=== PATIENT | male | born 1960 | race Caucasian/White ===

== ENCOUNTER 2023-07-18 07:05 | Observation (INO) ==
--- NOTE | 2023-06-07 11:30 | PAT Medication Instructions ---
Medication Instructions Date of Service June 07, 2023 Home Medications Medication Instructions Recorded tamsulosin 0.4 mg capsule 0.4 mg PO HS #90 caps 12/28/22 amoxicillin 875 mg-potassium 1 tab PO BID #20 tabs 05/30/23 clavulanate 125 mg tablet prednisone 10 mg tablet See Rx Instructions .Route 05/30/23 .COMPLEX #30 tabs CPAP Machine #1 ea 06/06/23 multivitamin (Daily Multi-Vitamin tablet) 1 tab PO QAM fluticasone propionate 50 mcg/actuation nasal spray,suspension (Flonase Allergy Relief) 2 spray intranasal QAM cholecalciferol (vitamin D3) 50 mcg (2,000 unit) capsule (Vitamin D3) 50 mcg PO QAM tamsulosin 0.4 mg capsule 0.4 mg PO HS clobetasol 0.05 % topical ointment 1 applic topical DAILY PRN Skin Irritation amoxicillin 875 mg-potassium clavulanate 125 mg tablet 1 tab PO BID prednisone 10 mg tablet See Rx Instructions amlodipine 5 mg tablet 5 mg PO QAM cetirizine 10 mg tablet (24Hour Allergy) 10 mg PO QAM [place]'s disease diphenhydramine HCl 25 mg tablet (Benadryl Allergy) 25 mg PO HS PRN coral's disease irbesartan 75 mg tablet 75 mg PO QAM Continue as directed amoxicillin 875 mg-potassium clavulanate 125 mg tablet 1 tab PO BID prednisone 10 mg tablet See Rx Instructions STOP taking 24 hours before surgery clobetasol 0.05 % topical ointment 1 applic topical DAILY PRN Skin Irritation DO NOT take the morning of surgery multivitamin (Daily Multi-Vitamin tablet) 1 tab PO QAM cholecalciferol (vitamin D3) 50 mcg (2,000 unit) capsule (Vitamin D3) 50 mcg PO QAM cetirizine 10 mg tablet (24Hour Allergy) 10 mg PO QAM [place]'s disease irbesartan 75 mg tablet 75 mg PO QAM Take morning of surgery With a small sip of water, OTHERWISE NOTHING TO EAT OR DRINK AFTER MIDNIGHT: fluticasone propionate 50 mcg/actuation nasal spray,suspension (Flonase Allergy Relief) 2 spray intranasal QAM amlodipine 5 mg tablet 5 mg PO QAM Take evening before surgery tamsulosin 0.4 mg capsule 0.4 mg PO HS diphenhydramine HCl 25 mg tablet (Benadryl Allergy) 25 mg PO HS PRN coral's disease (if needed) Other Notes If you have any questions please call us at [phone] or [phone] or [phone] or [phone]
--- NOTE | 2023-06-12 12:09 | Anesthesiology Consultation ---
Date of Service June 12, 2023 Assessment & Plan (1) Encounter for pre-operative examination: - Outpatient joint assessment: Patient is currently scheduled for inpatient pathway. If re-evaluated and surgeon requests outpatient pathway, patient is not recommended candidate for outpatient joint program from anesthesia standpoint as he expresses is not comfortable going home same day at this time given age. Chart Review Chart Review: Acceptable Risk for Surgery and Patient seen in Pre Admission Testing Teaching & Discussion Pre-Anesthesia Teaching/Discussion Notes: Instructed NPO after midnight before surgery, except medications with 15 cc of water. Medication instructions provided according to the PAT guidelines. History Surgery Operation Date: 07/18/23 12:50 Proposed Procedures p Left Total Knee Arthroplasty - Riley Maki MD Height/Weight Height: 5 ft 9 in Weight: 97.3 kg Allergies Allergy/AdvReac Type Severity Reaction Status Date / Time No Known Drug Allergies Allergy Verified 06/13/23 13:53 Medications Home Medications Medication Instructions Recorded Confirmed Last Taken multivitamin (Daily Multi-Vitamin 1 tab PO QAM 05/28/21 06/13/23 10/11/22 tablet) fluticasone propionate 50 2 spray intranasal QAM 07/07/21 06/13/23 10/12/22 mcg/actuation nasal spray,suspension (Flonase Allergy Relief) cholecalciferol (vitamin D3) 50 50 mcg PO QAM 10/06/22 06/13/23 10/11/22 mcg (2,000 unit) capsule (Vitamin D3) tamsulosin 0.4 mg capsule 0.4 mg PO HS #90 caps 12/28/22 06/13/23 Unknown prednisone 10 mg tablet See Rx Instructions .Route 05/30/23 06/13/23 Unknown .COMPLEX #30 tabs amlodipine 5 mg tablet 5 mg PO QAM 06/05/23 06/13/23 Unknown cetirizine 10 mg tablet (24Hour 10 mg PO QAM Coral's disease 06/05/23 06/13/23 Unknown Allergy) diphenhydramine HCl 25 mg tablet 25 mg PO HS PRN coral's disease 06/05/23 06/13/23 Unknown (Benadryl Allergy) irbesartan 75 mg tablet 75 mg PO QAM 06/05/23 06/13/23 Unknown CPAP Machine #1 ea 06/06/23 06/13/23 Unknown clobetasol 0.05 % topical ointment 1 applic topical BID #45 grams 06/13/23 06/13/23 Unknown Past Medical History Medical History (Updated 06/12/23 @ 12:12 by Becky Maciel PA-C) History of colon polyps [place]'s disease follows with [facility] Allergy Venous insufficiency HTN (hypertension) controlled, stable per pt NIESHA (obstructive sleep apnea) current machine does not work properly. has f/u with Dr Toscano 06/06/23. Allergic rhinitis BPH (benign prostatic hyperplasia) Patient denies h/o stroke, seizures, heart attack, heart failure, DM, blood clots/DVTs or blood transfusions. Exercise / Class Metabolic Activity II 4-5 Yardwork/Stairs/Walk up hill (denies chest discomfort or shortness of breath with 1 FOS) Past Family History Family History Mother Afib Dementia Father Prostate cancer Mini stroke Hypertension Other No family history of adverse response to anesthesia Denies family history of Ovarian cancer Myocardial infarction Breast cancer Colorectal cancer Past Surgical History Surgical History History of cataract surgery bilateral Status post laser ablation of incompetent vein left leg H/O colonoscopy 09/2022, repeat in 5 years History of meniscectomy of left knee Past Anesthesia History No Family Hx of Anesthesia Complications and Other (mild headache after colonoscopy) History of PONV No Hx of PONV and No Hx of Motion Sickness Social History Smoking Status: Never smoker Do You Dip or Chew Tobacco: No Hx Alcohol Use: Yes Alcohol type: beer, wine and hard liquor alcohol intake frequency: a few times a week Hx Substance Use: No substance use type: does not use Review of Systems Patient denies chest pain, shortness of breath, dyspnea on exertion, reflux, fever, chills, cough, wheezing, or palpitations. Physical Exam Vital Signs Vitals BP 103/69 P 81 TEMP 98.2 SP02 95% on RA RESP 17 Physical Patient resting comfortably in chair in no acute distress, alert and oriented, responding appropriately throughout visit Full cervical extension range of motion without pain TMD 3.5 finger breadths Mallampati Score 2 Dentition: intact, denies chipped or loose teeth, caps/crowns, implants or bridges Lungs: normal respiratory effort. Good air movement, clear throughout to auscultation, no adventitious breath sounds Cardiac: regular rate and rhythm, no murmurs noted Carotid arteries: negative bruit bilat Lab Results Anesthesia Preop Results Results Anesthesia Widget: WBC 10.28 K/ul (4.8-10.8) 06/12/23 Hgb 17.0 g/dl (14.0-18.0) 06/12/23 Hct 50.5 % (42.0-52.0) 06/12/23 Plt 257 K/uL (130-400) 06/12/23 Na 139 mmol/L (136-145) 06/12/23 K 4.5 mmol/L (3.5-5.1) 06/12/23 Cl 104 mmol/L (98-107) 06/12/23 CO2 30 mmol/L (21-32) 06/12/23 BUN 13 mg/dl (6-23) 06/12/23 Creat 0.93 mg/dl (0.6-1.4) 06/12/23 Glucose Level 98 mg/dl (70-99(Fasting)) 06/12/23 PT 10.8 Seconds (9.0-12.0) 06/12/23 PTT 30 Seconds (21-31) 06/12/23 INR 1.0 (0.9-1.1) 06/12/23 Blood Type O Positive 06/12/23 Antibody Screen NEGATIVE 06/12/23 Testing Electrocardiogram Date: 06/12/23 NSR, rate 73 bpm Possible inferior infarct, age undetermined Tracing is similar to previous EKGs scanned in chart from 2020 and 2019 Chest X-Ray Date: 06/12/23 No acute cardiopulmonary findings.
--- NOTE | 2023-07-16 11:24 | History & Physical Report ---
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 Has failed all conservative measures including PRP injection. He is ready to have his knee fixed. Plan: We will take him to the operating room do a left total knee replacement. The risks Mente this procedure explained the patient clued but not limited to DVT PE infection neurological and vascular bleeding palm pain limb range of motion sepsis fairly with symptoms incomplete relief of symptoms need for further surgery in future excetra. The patient understands and desires to proceed. Informed consent was obtained. He is got a plan on stay in the hospital overnight with hopeful discharge postop day 1. Will likely use of vancomycin in the cement due to his history of open surgery in the past. Will plan on DVT prophylaxis including thigh-high teds, SCDs, aspirin twice a day. (2) History of meniscectomy of left knee: History of Present Illness Chief Complaint: . Persistent left knee pain and discomfort. Primary Care Provider: Brennan Chacon DO . Patient is a 63-year-old gentleman from [place] who presents for surgical treatment his left knee. He has a long history of knee problems had an open meniscectomy back in 1976. Over the past several years she developed increased pain discomfort intermittent swelling in his knee. He has been through extensive conservative treatment including steroid shots and gel and shins as well as a stem cell injection. These have not helped very much. 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 Pain is global. Increased with activities. He does have some instability as well. He is ready to have his knee fixed. Allergies Allergy/AdvReac Type Severity Reaction Status Date / Time No Known Drug Allergies Allergy Verified 06/13/23 13:53 Home Medications Medication Instructions Recorded Confirmed Type multivitamin (Daily Multi-Vitamin 1 tab PO QAM 05/28/21 06/13/23 History tablet) fluticasone propionate 50 2 spray intranasal QAM 07/07/21 06/13/23 History mcg/actuation nasal spray,suspension (Flonase Allergy Relief) cholecalciferol (vitamin D3) 50 50 mcg PO QAM 10/06/22 06/13/23 History mcg (2,000 unit) capsule (Vitamin D3) tamsulosin 0.4 mg capsule 0.4 mg PO HS #90 caps 12/28/22 06/13/23 Rx prednisone 10 mg tablet See Rx Instructions .Route 05/30/23 06/13/23 Rx .COMPLEX #30 tabs amlodipine 5 mg tablet 5 mg PO QAM 06/05/23 06/13/23 History cetirizine 10 mg tablet (24Hour 10 mg PO QAM Coral's disease 06/05/23 06/13/23 History Allergy) diphenhydramine HCl 25 mg tablet 25 mg PO HS PRN coral's disease 06/05/23 06/13/23 History (Benadryl Allergy) irbesartan 75 mg tablet 75 mg PO QAM 06/05/23 06/13/23 History CPAP Machine #1 ea 06/06/23 06/13/23 Rx clobetasol 0.05 % topical ointment 1 applic topical BID #45 grams 06/13/23 06/13/23 Rx acetaminophen 500 mg tablet 1,000 mg (2 x 500 mg) PO TID pain 07/16/23 Rx (Tylenol Extra Strength) 30 days #180 tabs aspirin 81 mg tablet,delayed 81 mg PO BID 45 days #90 tabs 07/16/23 Rx release (Sanjay Low Dose Aspirin) cefadroxil 500 mg capsule 500 mg PO BID 7 days #14 caps 07/16/23 Rx ketorolac 10 mg tablet 10 mg PO Q6 pain 5 days #20 tabs 07/16/23 Rx ondansetron 4 mg disintegrating 4 mg PO Q8 PRN nausea #20 tabs 07/16/23 Rx tablet oxycodone 5 mg tablet 5 - 10 mg (1 - 2 x 5 mg) PO Q6 PRN 07/16/23 Rx pain #40 tabs sennosides 8.6 mg tablet (Senokot) 8.6 mg PO BID prevent constipation 07/16/23 Rx 14 days #28 tabs Past Med/Surg History Medical History History of colon polyps [place]'s disease follows with [facility] Allergy Venous insufficiency HTN (hypertension) controlled, stable per pt NIESHA (obstructive sleep apnea) current machine does not work properly. has f/u with Dr Toscano 06/06/23. Allergic rhinitis BPH (benign prostatic hyperplasia) Surgical History History of cataract surgery bilateral Status post laser ablation of incompetent vein left leg H/O colonoscopy 09/2022, repeat in 5 years History of meniscectomy of left knee Family History Mother Afib Dementia Father Prostate cancer Mini stroke Hypertension Other No family history of adverse response to anesthesia Denies family history of Ovarian cancer Myocardial infarction Breast cancer Colorectal cancer Social History Smoking Status: Never smoker Second Hand Exposure: No; Do You Dip or Chew Tobacco: No; Tobacco Cessation Education Requested by Patient: No Hx Alcohol Use: Yes Alcohol type: beer, wine and hard liquor Alcohol Intake Frequency: 2-4 x/Month Alcohol Intake Frequency Comment: 3-4 DRINKS WEEKLY Hx Substance Use: No Preferred Language: Ivorian Communication Ability: Effective Visual Impairment: Limited Hearing Ability: Normal 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 Physical Exam . Physical examination reveals a pleasant middle-age male. Looks in good health. Examination left knee reveals patient walks with a slight bit of a limp he is got varus alignment to his knee. Well-healed oblique lateral incision over the lateral joint line. Small knee effusion. Range of motion about 5 to 10 degrees show full extension to 105 degrees of flexion. Knee is pretty stiff in flexion. No pain with hip motion. He is neurologically intact. Constitutional WD/WN, vitals as above Respiratory normal respiratory effort, lungs clear to auscultation Cardiovascular RRR, no murmur, no edema Gastrointestinal (Abdomen) normal bowel sounds, soft, nontender, no hepatosplenomegaly Results & Data Results & Data Laboratory Results . Diagnostic Findings . X-rays left knee were reviewed. Shows advanced knee lateral compartment arthritis. Got complete loss of his lateral joint space. Got subchondral sclerosis and osteophytes laterally. PG Care Time/CCT Total # of Minutes Spent Total Time Spent with Patient: Total time spent is greater than 50% in coordination of care (as documented) at patient's floor/unit and/or counseling patient: Coding Level of Care Code None Diagnoses Left knee DJD M17.12 History of meniscectomy of left knee Z98.890
[~2023-07-18 07:05] MED LIST: ACETAMINOPHEN 500 MG TAB PO SCH; BUPIVACAINE 0.5 % 5 MG/1 ML PF 10ML VIAL ONE; CeleBREX 200 MG CAP PO SCH; FAMOTIDINE 20 MG TAB PO SCH; LR 500ML BOLUS, THEN 15ML/HR IV SCH; LR 60ML/HR IV SCH; METOCLOPRAMIDE HCL 10 MG TABLET PO SCH; ROPIV 0.5% 246mg, Ketorolac 30mg, EPINEPHrine 0.5mg in NSS INFIL SCH; ROPIVACAINE 0.5% 5 MG/ML 30 ML VIAL ONE; Scopolamine 1 MG TDSY TD SCH; TRANEXAMIC ACID 1,000 MG **IV Intra-op IV SCH; ceFAZolin 2000MG 2,000 MG/15 ML SYR IV SCH; dexAMETHasone**PF** 10 MG/ML VIAL IV SCH
[2023-07-18] MEDS ORDERED: MIDAZOLAM HCL 1 MG/ML 2ML VIAL ONE (08:04)
[2023-07-18] MEDS ORDERED: PROPOFOL IV EMULSION 10 MG/ML 20 ML VIAL IV ONE ×2 (08:08→13:35)
[2023-07-18] MEDS ORDERED: ONDANSETRON INJ 2 MG/ML 2 ML VIAL IV PRN ×2 (08:22→12:05)
[2023-07-18] MEDS ORDERED: fentaNYL citrate PF 100 MCG/2 ML VIAL IV PRN (08:22)
[2023-07-18] MEDS ORDERED: ATROPINE SULFATE 0.1 MG/ML 10ML SYR IV PRN (08:22)
[2023-07-18] MEDS ORDERED: ePHEDrine sulfate 50 MG/ML AMP IV PRN (08:22)
[2023-07-18] MEDS ORDERED: fentaNYL citrate PF 100 MCG/2 ML VIAL ONE (08:30)
[2023-07-18] MEDS ORDERED: LIDOCAINE 2% 2 ML VIAL/AMP(20MG/ML) INFIL ONE (08:30)
[2023-07-18] MEDS ORDERED: ORTHO JOINT ANESTHETIC ONE (08:45)
--- NOTE | 2023-07-18 08:54 | History & Physical Bridge Note ---
Date of Service July 18, 2023 History & Physical Bridge Note I have examined the patient, reviewed the History & Physical and in the interval since the performance of the History & Physical I have noted the following changes of clinical significance: no changes noted
[2023-07-18] MEDS ORDERED: VANCOMYCIN HCL 1000MG/20ML VIAL ONE (09:11)
[2023-07-18] MEDS ORDERED: KETOROLAC 30 MG/ML VIAL ONE (10:21)
--- NOTE | 2023-07-18 10:58 | Operative Report ---
PG Post Operative Report Pre & Post Diagnosis Operation Date: 07/18/23 08:50 Pre-Op Diagnosis: Left Knee Advanced Degnerative Joint Disease Post-Op Diagnosis: Left Knee Advanced Degnerative Joint Disease I identified the patient and participated in the time-out.: Yes Procedure Operation Date: 07/18/23 08:50 Actual Procedures p Left Total Knee Arthroplasty(Left) - Riley Maki MD Surgeon Riley Maki MD Wellness Assistant Rahul Olmos PA-C Estimated Blood Loss 50 Findings Consistent with Post-Op Diagnosis Operative findings reveal advanced left knee DJD. Extensive grade 4 [id number] disease of the entire lateral compartment. He is a valgus deformity to his knee. Her large knee joint effusion. Specimens Left knee sent for pathology. Anesthesia Type Spinal MAC Complications none Disposition Accompanied Patient To Recovery: No Indications Patient is a 63-year-old fairly active gentleman who had a long history of left knee pain discomfort is gradually gotten worse over time. He has history of an open meniscectomy many years ago. He failed conservative measures. X-rays showed advanced lateral compartment DJD. He elected proceed with surgical management. He did have a fairly stiff knee preoperatively as well. Description of Procedure Operative implants consist of: 1. Biomet Vanguard size 67.5 left Po stabilized femoral component. 2. Biomet size 75 tibial tray. 3. 10 mm post stabilized polyethylene insert. 4. 31 x 8 all poly patella. The patient was taken to the operating, identified, and placed on the operating table in the supine position. All contractors were appropriately padded. IV antibiotics tried by anesthesia team. A spinal anesthetic and abductor canal block by the holding area. A left thigh turn was then placed. Left lower extremities then prepped and draped in usual sterile fashion. The left leg was elevated exsanguinated with use of an Esmarch and tourniquet placed at 3 mmHg. An anterior approach the left knee was then performed to longitudinal incision centered over the patella. Sharp dissection was carried through subcutaneous tissue down the extensor mechanism. A medial parapatellar arthrotomy incision was made. Some subperiosteal dissection was carried out. The fat pad was resected from Neath patella tendon. Lateral patellofemoral ligament was released. Patella subluxated laterally. The knee was flexed. The osteophytes taken off distal femur. The ACL and PCL were then released from the distal femur the tibia subluxated anteriorly. The external tibial alignment jig was then placed the interface the tibia and adjusted 12 mm medially. Proximal tibial cut was made to remove about 2 to 3 mm of bone from the medial side. The tibia sized to a size 75. Attention drawn the femur. The distal femur examined the sharp drop with intramedullary canal was suction. A left 5 degree valgus cutting guide was placed. Distal femoral cutting block was pinned in place. Distal femoral cut was made to take an additional 3 mm of bone off distal femur. The femur was then sized to a size 67.5. The AP cutting block was pinned parallel to the epicondylar axis which was 5 degrees of exte rnal rotation. The anterior cut, anterior chamfer, posterior cut, posterior chamfer cuts were made. The box cutting guide was placed and adjusted slight laterally. The box cut was made. The knee was flexed. The remnants of the medial and lateral menisci were excised with the osteophytes taken off the posterior aspect the femur. A trial femoral component was placed through the tibial tray was pinned Kay external rotation and the drill and stem punch used to create defect in proximal tibia for the tibial tray. The knee was then trialed and the 10 mm insert fit most appropriately. Attention drawn the patella. The patella was cleaned of all soft tissue. Patella thickness measured 23 mm in thickness was cut down to 14. Was sized to a size 31 patella. The locals were drilled for 31 patella. The lateral osteophytes removed. Patella button was placed. Knee was taken through range of motion patella tracked nicely with no thumbs test. Attention drawn to placing the permanent components. All trial components were removed. Double batch [place] G cement was mixed. Biomet Vanguard size 67.5 left Po stabilized femoral component, size 75 tibial tray, a 10 mm pro stabilized polyethylene insert, and a 31 x 8 all poly patella then cemented in place. The knee was brought out into full extension till cement hardened. Final cement check was then performed. Pericapsular tissues were injected total 100 cc of combination of 20 of Exparel, 30 cc normal saline, 50 cc of quarter percent Marcaine with epinephrine. Patient did receive 1 g tranexamic acid. The tourniquet was let down for final tourniquet time 55 minutes. Hemostasis assured use electrocautery. Extensor Meclomen closed with combination 1 PDS suture #1 Vicryl suture in [id number] fashion. Extensor Meclomen checked found to be intact and subcutaneous tissue then closed with 2 Dexon suture in a buried interrupted fashion skin was closed skin jeannette. Leg was then cleaned and dried and sterile dressing was Xeroform, 4 fours, sterile cast padding, Juvencio bandage were applied. Patient then transferred to the recovery room in stable condition. Patient tolerated the procedure well and there were no complications. Rahul Olmos, my physician training and development assistant, was present for the entire procedure. His assistance was essential and required for appropriate patient positioning, prepping and draping, surgical exposure, performing the technical details of the operation, placement the implants, closure of the wound, and placement of the sterile bandage. I attest to the content of the Intraoperative Record and any orders documented therein. Any exceptions are noted below.
--- NOTE | 2023-07-18 11:42 | XRay Report ---
XR knee LT 1 or 2V routine CLINICAL HISTORY: Postoperative evaluation. COMPARISON: Left knee radiographs June 12, 2023. FINDINGS: Alignment of the total left knee arthroplasty is anatomic. There is no periprosthetic frac ture or unexpected radiopaque foreign body. There are skin jeannette. IMPRESSION: Expected findings following total left knee arthroplasty. ACT 112: Negative or not required by law. Electronically signed by: Skip Charles M.D. 07/18/2023 11:40 AM
[2023-07-18] MEDS ORDERED: ALUMINUM/MAGNESIUM SUSP 30 ML UDC PO PRN (12:05)
[2023-07-18] MEDS ORDERED: diphenhydrAMINE Capsule 25 MG CAP PO PRN (12:05)
[2023-07-18] MEDS ORDERED: HYDROmorphone INJ 0.5 MG/0.5 ML SYR IV PRN (12:05)
[2023-07-18] MEDS ORDERED: bisacodyL 10 MG SUPP PR PRN (12:05)
[2023-07-18] MEDS ORDERED: METOCLOPRAMIDE HCL INJ 5 MG/ML 2 ML VIAL IV PRN (12:05)
[2023-07-18] MEDS ORDERED: NALOXONE HCL 0.4 MG/1 ML VIAL/CARP IV PRN (12:05)
[2023-07-18] MEDS ORDERED: NON-FORMULARY MEDICATION (Diphenhydramine Hcl [Benadryl Allergy] 25 mg Tablet) PO PRN (12:05)
[2023-07-18] MEDS ORDERED: MAGNESIUM HYDROXIDE SUSP 30 ML UDC PO PRN (12:05)
--- NOTE | 2023-07-18 12:13 | Anesthesiology Progress Note ---
Date of Service July 18, 2023 Anesthesia Post Procedure Vital Signs Vital Signs: Temp Pulse Pulse Resp BP Pulse Ox O2 Del Method 07/18/23 11:40 97.5 F L 72 18 116/72 95 Room Air 07/18/23 11:30 97.3 F L 64 18 109/74 92 Room Air 07/18/23 11:20 97.3 F L 74 19 116/71 96 Room Air 07/18/23 11:10 97.3 F L 80 15 117/71 96 Room Air 07/18/23 11:00 78 19 111/72 94 Oxymask 07/18/23 11:00 97.3 F L 78 19 111/72 94 Room Air 07/18/23 10:50 78 13 114/82 93 Oxymask 07/18/23 10:44 97.3 F L 82 12 112/69 94 Oxymask 07/18/23 07:44 Room Air, CPAP 07/18/23 07:44 98.4 F 77 18 150/86 H 96 Room Air, CPAP O2 Flow Rate 07/18/23 11:40 07/18/23 11:30 07/18/23 11:20 07/18/23 11:10 07/18/23 11:00 3 07/18/23 11:00 07/18/23 10:50 5 07/18/23 10:44 5 07/18/23 07:44 07/18/23 07:44 Pain Intensity Left Knee: Pain Intensity: 0 Transfer of Care Handoff Completed per policy Notes Mental Status: alert / awake / arousable and participated in evaluation Patient Amnestic to Procedure: Yes Nausea / Vomiting: adequately controlled Pain: adequately controlled Airway Patency, RR, SpO2: stable & adequate BP & HR: stable & adequate Hydration State: stable & adequate Neuraxial Anesthesia: was administered and sensory block is resolving Anesthetic Complications: no major complications apparent and Pt Satisfied with anesthetic care
[2023-07-18] MEDS: SODIUM CHLORIDE 0.9% 1,000 ML IV SCH ×2 (12:19→22:31)
[2023-07-18] MEDS: KETOROLAC 30 MG/ML VIAL IV SCH ×2 (13:31→18:03)
[2023-07-18] MEDS: predniSONE 10 MG TABLET PO SCH (13:48)
[2023-07-18] MEDS: ASCORBIC ACID 500 MG TAB PO SCH (16:43)
[2023-07-18] MEDS: Scopolamine CHECK PATCH PLACEMENT SCH (16:43)
[2023-07-18] MEDS: ACETAMINOPHEN 500 MG TAB PO SCH (16:44)
[2023-07-18] MEDS: ceFAZolin 2000MG 2,000 MG/15 ML SYR IV SCH (16:45)
[2023-07-18] MEDS ORDERED: TRANEXAMIC ACID / 0.7% NACL 1,000 MG/100 ML BAG IV SCH (17:00)
[2023-07-18] MEDS: ASPIRIN 81 MG ECTAB PO SCH (19:59)
[2023-07-18] MEDS: DOCUSATE SODIUM 100 MG CAP PO SCH (20:00)
[2023-07-18] MEDS: CLOBETASOL PROPIONATE 0.05% OINT 15 GM TUBE EXT SCH (20:00)
[2023-07-18] MEDS ORDERED: SENNA 8.6 MG TAB PO SCH ×2 (21:00)
[2023-07-18] MEDS ORDERED: TAMSULOSIN HCL 0.4 MG CAP PO SCH (21:00)
[2023-07-19] MEDS: ACETAMINOPHEN 500 MG TAB PO SCH ×2 (00:03→08:01)
[2023-07-19] MEDS: KETOROLAC 30 MG/ML VIAL IV SCH ×2 (00:03→06:00)
[2023-07-19] MEDS: ceFAZolin 2000MG 2,000 MG/15 ML SYR IV SCH (00:06)
[2023-07-19] MEDS: Scopolamine CHECK PATCH PLACEMENT SCH ×2 (00:06→08:07)
[2023-07-19] MEDS: oxyCODONE HCL IR 5 MG TAB (IMMEDIATE RELEASE) PO PRN ×2 (01:50→08:04)
[2023-07-19 06:47] LABS: Hematocrit (blood only) 39.2 % (42.0-52.0); Hemoglobin 13.3 g/dl (14.0-18.0); Mean Corpuscular Hgb Conc 33.9 g/dL (32.0-36.0); Mean Corpuscular Volume 85.4 fL (80.0-100.0); Mean Platelet Volume 10.2 fL (9.4-12.4); Platelet Count 218 K/uL (130-400); RDW Standard Deviation 40.4 fL (36.4-46.3); Red Blood Count 4.59 M/uL (4.70-6.10); White Blood Count 24.03 K/ul (4.8-10.8)
[2023-07-19 07:34] LABS: Calcium 8.6 mg/dl (8.6-10.3); Potassium 4.2 mmol/L (3.5-5.1)
[2023-07-19 07:40] LABS: BUN Creatinine Ratio 21.6 (10-20); Creatinine Clr Calc Pharmacy 98.8 ml/min; Est GFR (African American) 105.2 ml/min; Est GFR (Non-African American) 90.8 ml/min
[2023-07-19] MEDS ORDERED: dexAMETHasone 10 MG in SYRINGE 0 ML IV SCH (08:00)
[2023-07-19] MEDS: ASPIRIN 81 MG ECTAB PO SCH (08:02)
[2023-07-19] MEDS: ASCORBIC ACID 500 MG TAB PO SCH (08:07)
[2023-07-19] MEDS: DOCUSATE SODIUM 100 MG CAP PO SCH (08:08)
[2023-07-19] MEDS: predniSONE 10 MG TABLET PO SCH (08:09)
[2023-07-19] MEDS: CLOBETASOL PROPIONATE 0.05% OINT 15 GM TUBE EXT SCH (08:09)
[2023-07-19] MEDS ORDERED: MULTIVITAMIN TAB PO SCH (09:00)
[2023-07-19] MEDS ORDERED: LOSARTAN POTASSIUM 25 MG TAB PO SCH (09:00)
[2023-07-19] MEDS ORDERED: OMEGA-3 (PURIFIED FISH OIL) 1 GM CAP PO SCH (09:00)
[2023-07-19] MEDS ORDERED: CETIRIZINE HCL 10 MG TABLET PO SCH (09:00)
[2023-07-19] MEDS ORDERED: NON-FORMULARY MEDICATION (Multivitamin [Daily Multi-Vitamin] tablet) PO SCH (09:00)
[2023-07-19] MEDS ORDERED: FLUTICASONE PROPIONATE NA SPR 16 GM BTL NAE SCH (09:00)
[2023-07-19] MEDS ORDERED: CHOLECALCIFEROL 1,000 UNITS 25 MCG TAB PO SCH (09:00)
[2023-07-19] MEDS ORDERED: amLODIPine BESYLATE 5 MG TAB PO SCH (09:00)
--- NOTE | 2023-07-19 10:43 | Orthopedic Progress Note ---
Date of Service July 19, 2023 Assessment & Plan (1) Status post left knee replacement: Overall he is doing quite well today with good pain control to the left knee. He will work with physical therapy later this morning to work on ambulation and range of motion exercises. He is on aspirin for DVT prophylaxis. He may be discharged home later this morning pending physical therapy evaluation. He will follow-up with Dr. Maki in 2 weeks for postoperative care. Subjective . Jesu was seen and evaluated at bedside this morning resting comfortably in no apparent distress. He notes that his pain is well-controlled to the left knee. He has been up and out of bed with no significant issues. He has yet to work with physical therapy this morning. He denies any other concerns today. Review of Systems All systems reviewed & are unremarkable except as noted in HPI & below. Physical Exam . On physical examination of the left knee, dressings are clean, dry, intact. His leg is out in full extension. He has active plantarflexion dorsiflexion to the left ankle. +2 DP and PT pulses. Less than 2-second capillary refill. Normal sensation. Neurovascular intact. Results & Data Results & Data Laboratory Results . Diagnostic Findings . Postoperative x-rays of the left knee show prosthesis to be in anatomical alignment with no signs of fracture complication or loosening. PG Care Time/CCT Total # of Minutes Spent Total Time Spent with Patient: Total time spent is greater than 50% in coordination of care (as documented) at patient's floor/unit and/or counseling patient: Coding Level of Care Code 62102 Post Operative Follow-Up Diagnoses Status post left knee replacement Z96.652
--- NOTE | 2023-07-19 10:45 | Discharge Summary ---
Date of Service July 19, 2023 Admission HPI (Per Admitting) . Patient is a 63-year-old gentleman from [place] who presents for surgical treatment his left knee. He has a long history of knee problems had an open meniscectomy back in 1976. Over the past several years she developed increased pain discomfort intermittent swelling in his knee. He has been through extensive conservative treatment including steroid shots and gel and shins as well as a stem cell injection. These have not helped very much. 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 Pain is global. Increased with activities. He does have some instability as well. He is ready to have his knee fixed. Admission Exam (Per Admitting) . Physical examination reveals a pleasant middle-age male. Looks in good health. Examination left knee reveals patient walks with a slight bit of a limp he is got varus alignment to his knee. Well-healed oblique lateral incision over the lateral joint line. Small knee effusion. Range of motion about 5 to 10 degrees show full extension to 105 degrees of flexion. Knee is pretty stiff in flexion. No pain with hip motion. He is neurologically intact. Principal Diagnosis Same as "Discharge Diagnosis" noted below under Discharge Instructions. Discharge Exam . On physical examination of the left knee, dressings are clean, dry, intact. His leg is out in full extension. He has active plantarflexion dorsiflexion to the left ankle. +2 DP and PT pulses. Less than 2-second capillary refill. Nor mal sensation. Neurovascular intact. Discharge Data Procedures Performed Operation Date: 07/18/23 08:50 Actual Procedures p Left Total Knee Arthroplasty(Left) - Riley Maki MD Ordered Studies 07/18/23 05:00 US - OR guided needle placemen Routine Hospital Course (1) Status post left knee replacement: On July 18, 2023 Jesu arrived at [facility] and underwent a left total knee arthroplasty performed by Dr. Maki with no complications. He had a spinal anesthetic. Postoperatively, he was started on aspirin for DVT prophylaxis and transferred to the general orthopedic floor in stable condition. His hospital course was uneventful. On postoperative day #1, his vital signs were stable and his pain was well-controlled. He participated well with physical therapy doing ambulation and range of motion exercises. He was then discharged home in stable condition. He will follow-up with Dr. Maki in 2 weeks for postoperative care. PG Care Time/CCT Total # of Minutes Spent Total Time Spent with Patient: Total time spent is greater than 50% in coordination of care (as documented) at patient's floor/unit and/or counseling patient: Discharge Plan Discharge Items Patient Disposition: Home - Home Health Services Reason For Visit: Degenerative Joint Disease Left Knee Discharge Diagnosis: Left Knee Replacement Activity: Per Instructions section Weightbearing: Full weightbearing Non-emergency contact: Surgeon Call non-emergency contact if: you have any medication questions Follow-up/Referrals: Brennan Chacon, [Primary Care Provider] - Diet: Regular Addtl Attending Provider Instructions: ACTIVITY RECOMMENDATIONS: Physical Therapy: * You will go to physical therapy three times each week for four to six weeks after your surgery in order to regain your knee range of motion and to retrain your knee to work properly. * It is just as important to make sure you are getting your knee perfectly straight as it is to regain your knee bend. * Taking a pain pill an hour before therapy can help you have a more productive and comfortable therapy session. Home Exercise: * You were shown a series of exercises (heel props, heel slides, etc.) in the hospital. Do these exercises three to four times each day including the exercises you were shown in physical therapy. Walking: * Get up and walk several times each day. For the first four weeks, try not to stand or walk for more than one hour at a time. If you do stand or walk for more than one hour, you will not hurt anything, but your knee and leg will likely swell. * As you feel comfortable, you may change from the walker or crutches to a cane and then to independent walking. MEDICATIONS: New Medicine: * You will likely be taking one or more of these medications: 1. Oxycodone - A quick and shorter-acting pain medication. Take one to two tablets every six hours to lessen your pain. 2. Aspirin - Thins your blood to lessen the chance of forming a blood clot. * The most common side effects of pain medicine and iron are nausea and constipation. If nausea or constipation is too much of a problem or if you have any questions about your new medicines or doses, call [facility] at . We will try to help you manage these issues. "VERY IMPORTANT TO READ AND REVIEW" Pain: * The immediate post-operative period after knee replacement surgery is often quite painful. * You are given a prescription for pain medicine. You should take it, as directed, when you need it, especially before physical therapy and before going to bed. Pain that interferes with sleep is very common and can last several months. * You will likely need pain medicine for the first four to six weeks. It will not stop all of the pain. The pain will lessen and as you feel better, you may change to milder pain medicine such as Tylenol. * The most common side effects of pain medicine are nausea and constipation, so don't take more than you need. SPECIAL CARE INSTRUCTIONS: TEDs/Elastic Stockings: * The white elastic stockings help limit swelling and prevent blood clots from forming in your legs. The more you wear them, the more they work. * Wear them for six weeks after knee replacement surgery and four weeks after partial knee replacement. Incision Site Care: * Remove dressing postoperative day 2 and then shower. Keep direct shower pressure off the incision site. * After showering, cover jeannette with dry gauze and change daily or more frequently if the dressing is getting saturated with drainage. * Use the ANGELLA stockings to hold dressing in place. DO NOT apply tape on the skin. * May completely stop using bandage if wound is dry and no drainage * [place] are removed between 2 and 3 weeks post-op. If your follow-up appointment is made before 2 weeks, please have your appointment re- scheduled. It is too early to remove the jeannette. Prevention of Infection: * Take antibiotics one hour before any dental cleaning, dental work, urological procedure, gastrointestinal procedure or any invasive surgery in order to prevent your new joint from getting infected. * You may get the antibiotics from the doctor performing the procedure or you may call our office at [phone] before and we will call in a prescription to the pharmacy of your choice. Things to Watch For: * Drainage from the incision site that occurs more than one week after your surgery. * Severely increased knee/leg pain or swelling. * Increased redness at the incision site. * Fever above 102 degrees Fahrenheit. * Unusual chest pain or shortness of breath. * Unusual pain or burning with urination. Call [facility] at [phone] with any of the above problems or if you have any questions about your medicines or recovery. FOLLOW UP VISIT: Make an appointment to see your doctor for approximately two weeks after surgery for a progress check and staple removal by calling the office at [phone]. Pending Studies at Discharge: No Stand-Alone Forms: [facility] [place], Smoking Cessation Medications and DC Order Prescriptions: Continued tamsulosin 0.4 mg capsule 0.4 mg PO HS Qty: 90 3RF oxycodone 5 mg tablet 5 - 10 mg PO Q6 PRN (Reason: pain) Qty: 40 0RF Rx Instructions: Take as needed for pain ondansetron 4 mg tablet,disintegrating 4 mg PO Q8 PRN (Reason: nausea) Qty: 20 1RF Rx Instructions: Take as needed for nausea ketorolac 10 mg tablet 10 mg PO Q6 5 Days Qty: 20 0RF Rx Instructions: Take 4 times per day with food for 5 days to lessen pain and swelling. sennosides [Senokot] 8.6 mg tablet 8.6 mg PO BID 14 Days Qty: 28 0RF Rx Instructions: Take two times a day to prevent/treat constipation aspirin [Sanjay Low Dose Aspirin] 81 mg tablet,delayed release (DR/EC) 81 mg PO BID 45 Days Qty: 90 0RF Rx Instructions: Take to prevent blood clots. acetaminophen [Tylenol Extra Strength] 500 mg tablet 1,000 mg PO TID 30 Days Qty: 180 0RF Rx Instructions: Take 3 times per day to lessen pain. cefadroxil 500 mg capsule 500 mg PO BID 7 Days Qty: 14 0RF Rx Instructions: Take 1 cap twice a day to prevent infection multivitamin [Daily Multi-Vitamin] Tablet 1 tab PO QAM prednisone 10 mg tablet See Rx Instructions .Route .COMPLEX Qty: 30 0RF Rx Instructions: Take 4 tabs orally x 3 days, 3 tabs orally x 3 days, 2 tabs orally x 3 days and 1 tab orally x 3 days. fluticasone propionate [Flonase Allergy Relief] 50 mcg/actuation spray,suspension 2 spray intranasal QAM Rx Instructions: administer into each nostril (DME) CPAP Machine Misc See Rx Instructions .Route Qty: 1 0RF Rx Instructions: Auto CPAP 5-15 cm water pressure with heated humidification, tubing, and supplies. AMY: 99+ years. clobetasol 0.05 % ointment 1 applic topical BID Qty: 45 0RF Rx Instructions: Apply to affected areas on the trunk and upper extremities twice daily as needed for itching. 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
[2023-07-21] MEDS ORDERED: predniSONE 10 MG TABLET PO SCH (09:00)
[2023-07-24] MEDS ORDERED: predniSONE 10 MG TABLET PO SCH (09:00)
[2023-07-27] MEDS ORDERED: predniSONE 10 MG TABLET PO SCH (09:00)
== END 2023-07-19 10:58 | disposition home health service (06) ==
LOC: 3E 07:05 → ASU 07:05